=== PATIENT | male | born 1945 | race Caucasian/White ===

== ENCOUNTER 2019-09-05 12:33 | Emergency (ER) | payer OTHER ==
--- NOTE | 2019-09-05 12:47 | RAD REPORT ---
EXAM DESCRIPTION: CT - Ct Stroke Brain Wo Cont - 09/05/2019 12:41 pm CLINICAL HISTORY: left arm drift and left eye droop CVA symptomology COMPARISON: Head Brain W Cont dated 08/30/2019 TECHNIQUE: All CT scans are performed using dose optimization technique as appropriate and may inclu de automated exposure control or mA/KV adjustment according to patient size. FINDINGS: No intracranial hemorrhage, hydrocephalus or extra-axial fluid collection.Moderate general ized brain atrophy is present with moderate periventricular and deep white matter chronic microvascul ar ischemic changes.No areas of brain edema or evidence of midline shift. The paranasal sinuses and mastoids are clear. The calvarium is intact. IMPRESSION: No acute intracranial abnormality. The findings were discussed with Benny ROLAND in the ER on 09/05/2019 at 12:42 p.m. by telephone.
[2019-09-05 12:54] LABS: Basophils % 1.1 % (0-1.3); Hematocrit 36.4 % (39.6-49.0); Lymphocytes % 17.4 % (15.3-44.8); MPV 8.8 fL (7.6-11.3); RBC Red Blood Cell Count 3.91 M/uL (4.33-5.43)
[2019-09-05 13:05] LABS: Protime INR 0.97
[2019-09-05 13:09] LABS: Potassium 3.9 mmol/L (3.5-5.1)
[2019-09-05] MEDS ORDERED: ASPIRIN EC 81 MG TAB PO ONE (13:31)
--- NOTE | 2019-09-05 14:34 | RAD REPORT ---
EXAM DESCRIPTION: MRI - Brain Wo Cont - 09/05/2019 2:26 pm CLINICAL HISTORY: TIA CVA symptomology COMPARISON: Ct Stroke Brain Wo Cont dated 09/05/2019 TECHNIQUE: Multi-sequence, multiplanar MR imaging of the brain was performed without contrast. FINDINGS: No intracranial hemorrhage, hydrocephalus or extra-axial fluid collections.Moderate genera lized brain atrophy. Mild periventricular and deep white matter chronic microvascular ischemic change s. No edema or shift of midline structures. No findings to suspect brain mass. DWI is negative for ac [place] CVA. Midline structures are normally formed. Mastoid air cells and paranasal sinuses are clear. IMPRESSION: Negative for acute CVA or other acute intracranial finding.
--- NOTE | 2019-09-05 15:09 | RAD REPORT ---
EXAM DESCRIPTION: RAD - Chest Single View - 09/05/2019 12:59 pm CLINICAL HISTORY: discretion Chest pain. COMPARISON: No comparisons FINDINGS: Portable technique limits examination quality. The lungs are grossly clear. The heart is normal in size. No displaced fractures. IMPRESSION: No acute intrathoracic process suspected.
--- NOTE | 2019-09-05 15:23 | ER ---
Nurse's Notes [facility] Name: Yang Myrick Age: 73 yrs Sex: Male : 1945 Arrival Date: 09/05/2019 Time: 12:32 Bed 26 Private MD: Diagnosis: Weakness;Transient cerebral ischemic attack, unspecified Presentation: 09/05 12:32 Presenting complaint: EMS states: left arm drift and weakness that was noticed by [facility] care home staff today. Left eye droop noted and left arm drift noted. EMS reports last known normal was 09/04/19 "at breakfast time as reported by care home staff". 12:32 Onset of symptoms was August 2019. Care prior to arrival: IV initiated. 20 GA, in the aa5 left antecubital area, Glucose check: 270. 12:32 Acuity: YOANA 2 aa 12:32 Method Of Arrival: EMS: [facility] 14:21 Transition of care: patient was received from another setting of care ([facility] care [facility]. The patients blood glucose was checked prior to arriving to the hospital and was found to be hyperglycemic. Risk Assessment: Do you want to hurt yourself or someone else? Patient reports no desire to harm self or others. Initial Sepsis Screen: Does the patient meet any 2 criteria? No. Patient's initial sepsis screen is negative. Does the patient have a suspected source of infection? No. Patient's initial sepsis screen is negative. Triage Assessment: 14:21 The onset of the patients symptoms was more than six hours ago. General: Appears in no mg2 apparent distress. comfortable, Behavior is crying. 16:11 Neuro: Reports weakness. mg2 Stroke Activation: Symptom onset > 6 hours Physician: Stroke Attending; Name: ; Notified At: ; Arrived At: Physician: Chief Stroke Resident; Name: ; Notified At: ; Arrived At: Physician: Stroke Resident; Name: ; Notified At: ; Arrived At: Physician: ED Attending; Name: ; Notified At: ; Arrived At: Physician: ED Resident; Name: ; Notified At: ; Arrived At: Historical: - Allergies: 12:57 No Known Allergies; mg2 - PMHx: 12:57 BPH; Dementia; DLP; HTN; cognitive communication deficit; dysphagia; anxiety; muscle mg2 weakness generalized; - Immunization history:: Flu vaccine status is unknown. - Ebola Screening: : No symptoms or risks identified at this time. - Social history:: Smoking status: unknown. Screenin:47 Abuse screen: Denies threats or abuse. Denies injuries from another. Nutritional mg2 screening: No deficits noted. Tuberculosis screening: No symptoms or risk factors identified. Fall Risk IV access (20 points). Ambulatory Aid- None/Bed Rest/Nurse Assist (0 pts). Gait- Weak (10 pts.). Assessment: 12:32 Reassessment: Pt to CT via stretcher accompanied by ALOK Lo. aa5 12:40 VAN Scoring: Arm Drift: Minor drift Visual Disturbance: No visual disturbance noted. mg2 Aphasia: No aphasia noted. Neglect: No neglect noted. Pain: Denies pain. Neuro: Level of Consciousness is awake, alert, obeys commands, Oriented to person, time, Spare Fixer are weak on left Speech is normal, Facial droop on left. 12:48 Cardiovascular: Capillary refill < 3 seconds Patient's skin is warm and dry. mg2 Respiratory: Airway is patent Respiratory effort is even, unlabored, Respiratory pattern is regular, symmetrical. GI: No signs and/or symptoms were reported involving the gastrointestinal system. : No signs and/or symptoms were reported regarding the genitourinary system. EENT: No signs and/or symptoms were reported regarding the EENT system. Derm: Skin is intact, is healthy with good turgor, Skin is pink, warm \\T\\ dry. normal. Musculoskeletal: Circulation, motion, and sensation intact. Capillary refill < 3 seconds. 14:18 Patient has been NPO before screening. The patient is alert, and able to follow mg2 commands. The patient does not exhibit slurred or garbled speech. The patient is not exhibiting difficulty speaking. The patient does not exhibit difficulty understanding words. The patient is able to swallow own secretions with no drooling or need for suction. Patient tolerated one teaspoon of water. No drooling, immediate coughing, gurgling, or clearing of the throat was noted. The patient tolerated 90mL of water. No drooling, immediate coughing, gurgling, or clearing of the throat was noted. The patient passed the bedside swallow screening. Oral medications may be given as ordered. Contact Physician for further diet orders. Provider notified of bedside swallow screening results: Diallo ROLAND. T-PA (Activase) Screening: Contraindications: Patient reports onset of signs and symptoms of stroke greater than 6 hours ago:. 14:22 Reassessment: Patient appears in no apparent distress at this time. patient sent to MRI.mg2 15:52 Reassessment: spoke to ALOK Quiroz from [facility] and said transportation mg2 is on its way. informed. Vital Signs: 12:44 BP 160 / 95; Pulse 79; Resp 18; Temp 98.6; Pulse Ox 100% on R/A; mg2 NIH Stroke Scale Scores: 15:05 NIHSS Score: 2 jr8 ED Course: 12:32 Patient arrived in ED. mg2 12:36 Jaydon Egan MD is Attending Physician. kdr 12:40 Triage completed. aa5 12:43 CT Stroke Brain w/o Contrast In Process Unspecified. EDMS 12:44 Wally Gandhi RN is Primary Nurse. mg2 12:47 Arm band placed on. mg2 12:48 Patient has correct armband on for positive identification. corn grower on. Pulse mg2 ox on. NIBP on. Door closed. Warm blanket given. 12:48 No provider procedures requiring assistance completed. Maintain EMS IV. Dressing mg2 intact. Good blood return noted. Site clean \\T\\ dry. Gauge \\T\\ site: 20 \\T\\ LAC. 12:49 [facility] Reeder [facility] jr8 12:53 EKG done, by pharmacy laboratory technician. reviewed by Diallo ROLAND. at1 13:08 Stroke CXR 1 View In Process Unspecified. EDMS 14:20 MRI - Brain Wo Cont In Process Unspecified. EDMS 16:10 IV discontinued, intact, bleeding controlled, No redness/swelling at site. Pressure mg2 dressing applied. Administered Medications: 13:32 Drug: Aspirin 81 mg Route: PO; mg2 14:23 Follow up: Response: No adverse reaction mg2 Point of Care Testing: Blood Glucose: 12:44 Blood Glucose: 178 mg/dL; mg2 Ranges: Outcome: 15:21 Discharge ordered by . jr8 16:11 Discharged to care home. Report called to ALOK Pressley mg2 16:11 Condition: stable 16:11 Discharge instructions given to family, care home, Instructed on discharge instructions, follow up and referral plans. medication usage, Demonstrated understanding of instructions, follow-up care, medications, Prescriptions given X 1. 16:12 Patient left the ED. mg2 NIH Stroke Scale - NIH Stroke Score Date: 09/05/2019 Time: 15:05 Total Score = 2 1a. Level of Consciousness (LOC) - 0(Alert) 1b. Level of Consciousness (LOC) (Year \\T\\ Age) - 1(One) 1c. LOC Commands (Open \\T\\ Closes Eyes/Lawn Mower Operator) - 0(Both) 2. Best Gaze (Lateral Gaze Paresis) - 0(Normal) 3. Visual Field Loss - 0(No visual loss) 4. Facial Palsy - 0(Normal) 5a. Left Arm: Motor (10-second hold) - 0(No drift) 5b. Right Arm: Motor (10-second hold) - 0(No drift) 6a. Left Leg: Motor (5-second hold - always test supine) - 0(No drift) 6b. Right Leg: Motor (5-second hold - always test supine) - 0(No drift) 7. Limb Ataxia (finger/nose \\T\\ heel/merino - test with eyes open) - 0(Absent) 8. Sensory Loss (pinprick arms/legs/face) - 0(Normal) 9. Best Language: Aphasia (description/naming/reading) - 0(No aphasia) 10. Dysarthria (speech clarity - read or repeat words) - 1(Mild to Moderate) 11. Extinction and Inattention (visual/tactile/auditory/spatial/personal) - 0(No abnormality) Initials: jr8 Signatures: Dispatcher [employer] EDMS Jaydon Egan MD MD [facility] Mecca Sherwood, RN RN aa5 iDallo Reeder PA PA jr8 Sharon Jansen, gas meter checker EKG Tat1 Wally Gandhi RN RN mg2
--- NOTE | 2019-09-05 15:24 | EDPHYS ---
Physician Documentation [facility] Name: Yang Myrick Age: 73 yrs Sex: Male : 1945 Arrival Date: 09/05/2019 Time: 12:32 Bed 26 Private MD: ED Physician Jaydon Egan HPI: 09/05 15:05 This 73 yrs old Male presents to ER via EMS with complaints of S/S of jr8 Possible Stroke. 15:05 The patient's problem is reported as weakness, in the left upper extremity. Onset: The jr8 symptoms/episode began/occurred acutely, at an unknown time. Duration: The episode is continuous. Context: the episode(s) was witnessed, by the [facility] staff, symptoms became apparent at lunch time today, occurred at a penitentiary or assisted living facility. The symptoms are alleviated by nothing. The symptoms are aggravated by nothing. Associated signs and symptoms: The patient has no apparent associated signs or symptoms. Severity of symptoms: At their worst the symptoms were mild in the emergency department the symptoms have resolved. Patient's baseline: Neuro: alert but confused, orientated to person, Motor: general weakness. Wheel chair and bed bound, Ambulation: unable to walk, is bedridden, uses wheelchair, Speech: slow, slurred, history of dysphagia . It is unknown whether or not the patient has had similar symptoms in the past. The patient has not recently seen a physician. [facility] staff reported to EMS that patients last known normal was yesterday around breakfast time. Stated that today started to noticed left sided weakness. Baseline history of dementia with cognitive and motor deficits. Patient currently alert to person and place. Historical: - Allergies: 12:57 No Known Allergies; mg2 - PMHx: 12:57 BPH; Dementia; DLP; HTN; cognitive communication deficit; dysphagia; anxiety; muscle mg2 weakness generalized; - Immunization history:: Flu vaccine status is unknown. - Ebola Screening: : No symptoms or risks identified at this time. - Social history:: Smoking status: unknown. ROS: 15:05 Eyes: Negative for injury, pain, redness, and discharge, ENT: Negative for injury, jr8 pain, and discharge, Neck: Negative for injury, pain, and swelling, Cardiovascular: Negative for chest pain, palpitations, and edema, Respiratory: Negative for shortness of breath, cough, wheezing, and pleuritic chest pain, Abdomen/GI: Negative for abdominal pain, nausea, vomiting, diarrhea, and constipation, Back: Negative for injury and pain, MS/Extremity: Negative for injury and deformity, Skin: Negative for injury, rash, and discoloration. 15:05 Neuro: Positive for weakness. Exam: 15:05 Radiologist reports: negative jr8 15:05 Eyes: Pupils equal round and reactive to light, extra-ocular motions intact. Lids and lashes normal. Conjunctiva and sclera are non-icteric and not injected. Cornea within normal limits. Periorbital areas with no swelling, redness, or edema. ENT: Nares patent. No nasal discharge, no septal abnormalities noted. Tympanic membranes are normal and external auditory canals are clear. Oropharynx with no redness, swelling, or masses, exudates, or evidence of obstruction, uvula midline. Mucous membranes moist. Neck: Trachea midline, no thyromegaly or masses palpated, and no cervical lymphadenopathy. Supple, full range of motion without nuchal rigidity, or vertebral point tenderness. No Meningismus. Cardiovascular: Regular rate and rhythm with a normal S1 and S2. No gallops, murmurs, or rubs. Normal PMI, no JVD. No pulse deficits. Respiratory: Lungs have equal breath sounds bilaterally, clear to auscultation and percussion. No rales, rhonchi or wheezes noted. No increased work of breathing, no retractions or nasal flaring. Abdomen/GI: Soft, non-tender, with normal bowel sounds. No distension or tympany. No guarding or rebound. No evidence of tenderness throughout. Back: No spinal tenderness. No costovertebral tenderness. Full range of motion. Skin: Warm, dry with normal turgor. Normal color with no rashes, no lesions, and no evidence of cellulitis. MS/ Extremity: Pulses equal, no cyanosis. Neurovascular intact. Full, normal range of motion. 15:05 Neuro: Orientation: to person, place, Mentation: able to follow commands, slow to respond, Memory: immediate memory is intact, remote memory is impaired, recent memory is impaired, Cranial nerves: CN I not tested, CN II- XII are normal as tested, extraocular movements are intact, Facial palsy and sensory deficits are absent. Speech is dysarthric, slowed, Tongue strength is normal, Cerebellar function: normal finger to nose testing, Motor: moves all fours, strength is 4/5 in the right hand, left hand, right foot, left foot, right arm, left arm, right leg and left leg, Sensation: no obvious gross deficits, Gait: not tested. seizure activity, is not displayed by the patient, Abnormal movements: there are no abnormal movements. Vital Signs: 12:44 BP 160 / 95; Pulse 79; Resp 18; Temp 98.6; Pulse Ox 100% on R/A; mg2 13:30 BP 140 / 78; Pulse 80; Resp 18; Pulse Ox 100% on R/A; mg2 14:30 BP 150 / 78; Pulse 81; Resp 18; Pulse Ox 100% on R/A; mg2 15:30 BP 142 / 78; Pulse 82; Resp 18; Temp 98; Pulse Ox 100% on R/A; mg2 NIH Stroke Scale Scores: 15:05 NIHSS Score: 2 mg2 15:05 NIHSS Score: 2 [facility] MDM: 12:49 Patient medically screened. [facility] 15:05 Data reviewed: vital signs, nurses notes, lab test result(s), EKG, radiologic studies, [facility] CT scan, MRI, plain films. Data interpreted: Pulse oximetry: on room air is 100 %. Interpretation: normal. Counseling: I had a detailed discussion with the patient and/or guardian regarding: the historical points, exam findings, and any diagnostic results supporting the discharge/admit diagnosis, lab results, radiology results, the need for outpatient follow up, a family practitioner, a neurologist, to return to the emergency department if symptoms worsen or persist or if there are any questions or concerns that arise at home. ED course: No acute lab abnormalities. No acute CT or MRI findings to suggest stroke. Will have patient f/u outpatient aranda . 09/05 12:35 Order name: Basic Metabolic Panel; Complete Time: 13:20 09/05 12:35 Order name: CBC with Diff; Complete Time: 13:20 09/05 12:35 Order name: Protime (+inr); Complete Time: 13:20 09/05 12:35 Order name: Ptt, Activated; Complete Time: 13:20 09/05 12:35 Order name: CT Stroke Brain w/o Contrast; Complete Time: 13:01 09/05 12:57 Order name: Glucose, Ancillary Testing; Complete Time: 13:01 EDPA 09/05 12:35 Order name: Stroke CXR 1 View [facility] 09/05 12:35 Order name: EKG; Complete Time: 12:37 aa5 09/05 12:35 Order name: Accucheck; Complete Time: 12:49 aa5 09/05 12:35 Order name: Cardiac monitoring; Complete Time: 12:49 aa5 09/05 12:35 Order name: EKG - Nurse/Tech; Complete Time: 12:49 aa5 09/05 13:21 Order name: MRI - Brain Wo Cont; Complete Time: 14:59 jr8 09/05 14:42 Order name: Social Service Consult EDPA 09/05 12:35 Order name: IV Saline Lock; Complete Time: 12:49 aa5 09/05 12:35 Order name: Labs collected and sent; Complete Time: 12:50 aa5 09/05 12:35 Order name: NPO; Complete Time: 12:50 aa5 09/05 12:35 Order name: O2 Per Protocol; Complete Time: 12:50 aa5 09/05 12:35 Order name: O2 Sat Monitoring; Complete Time: 12:50 aa5 09/05 12:35 Order name: Stroke Swallow Screen; Complete Time: 13:16 aa5 Administered Medications: 13:32 Drug: Aspirin 81 mg Route: PO; mg2 14:23 Follow up: Response: No adverse reaction mg2 Point of Care Testing: Blood Glucose: 12:44 Blood Glucose: 178 mg/dL; mg2 Ranges: Critical Glucose Levels:Adult <50 mg/dl or >400 mg/dl <40 mg/dl or >180 mg/dl Disposition: 09/06 07:30 Co-signature as Attending Physician, Jayodn Egan MD I agree with the assessment and kdr plan of care. Disposition: 09/05/19 15:21 Discharged to Home. Impression: Weakness, Transient cerebral ischemic attack, unspecified. - Condition is Stable. - Discharge Instructions: Stroke Prevention, Transient Ischemic Attack. - Medication Reconciliation Form, Thank You Letter, Antibiotic Education, Prescription Opioid Use form. - Follow up: Private Physician; When: 2 - 3 days; Reason: Recheck today's complaints, Continuance of care, Re-evaluation by your physician. - Problem is new. - Symptoms are unchanged. - Notes: Please start 81 mg Daily aspirin NIH Stroke Scale - NIH Stroke Score Date: 09/05/2019 Time: 15:05 Total Score = 2 1a. Level of Consciousness (LOC) - 0(Alert) 1b. Level of Consciousness (LOC) (Year \T\ Age) - 1(One) 1c. LOC Commands (Open \T\ Closes Eyes/Utility Tech) - 0(Both) 2. Best Gaze (Lateral Gaze Paresis) - 0(Normal) 3. Visual Field Loss - 0(No visual loss) 4. Facial Palsy - 0(Normal) 5a. Left Arm: Motor (10-second hold) - 0(No drift) 5b. Right Arm: Motor (10-second hold) - 0(No drift) 6a. Left Leg: Motor (5-second hold - always test supine) - 0(No drift) 6b. Right Leg: Motor (5-second hold - always test supine) - 0(No drift) 7. Limb Ataxia (finger/nose \T\ heel/merino - test with eyes open) - 0(Absent) 8. Sensory Loss (pinprick arms/legs/face) - 0(Normal) 9. Best Language: Aphasia (description/naming/reading) - 0(No aphasia) 10. Dysarthria (speech clarity - read or repeat words) - 1(Mild to Moderate) 11. Extinction and Inattention (visual/tactile/auditory/spatial/personal) - 0(No abnormality) Initials: mg2 NIH Stroke Scale - NIH Stroke Score Date: 09/05/2019 Time: 15:05 Total Score = 2 1a. Level of Consciousness (LOC) - 0(Alert) 1b. Level of Consciousness (LOC) (Year \T\ Age) - 1(One) 1c. LOC Commands (Open \T\ Closes Eyes/Utility Tech) - 0(Both) 2. Best Gaze (Lateral Gaze Paresis) - 0(Normal) 3. Visual Field Loss - 0(No visual loss) 4. Facial Palsy - 0(Normal) 5a. Left Arm: Motor (10-second hold) - 0(No drift) 5b. Right Arm: Motor (10-second hold) - 0(No drift) 6a. Left Leg: Motor (5-second hold - always test supine) - 0(No drift) 6b. Right Leg: Motor (5-second hold - always test supine) - 0(No drift) 7. Limb Ataxia (finger/nose \T\ heel/merino - test with eyes open) - 0(Absent) 8. Sensory Loss (pinprick arms/legs/face) - 0(Normal) 9. Best Language: Aphasia (description/naming/reading) - 0(No aphasia) 10. Dysarthria (speech clarity - read or repeat words) - 1(Mild to Moderate) 11. Extinction and Inattention (visual/tactile/auditory/spatial/personal) - 0(No abnormality) Initials: 8 Signatures: Dispatcher [employer] EDMS Jaydon Egan MD MD kdr Mecca Sherwood RN RN aa5 Diallo Reeder PA PA jr8 Wally Gandhi RN RN mg2 Corrections: (The following items were deleted from the chart) 09/05 16:12 15:21 09/05/2019 15:21 Discharged to Home. Impression: Weakness; Transient mg2 cerebral ischemic attack, unspecified. Condition is Stable. Forms are Medication Reconciliation Form, Thank You Letter, Antibiotic Education, Prescription Opioid Use. Follow up: Private Physician; When: 2 - 3 days; Reason: Recheck today's complaints, Continuance of care, Re-evaluation by your physician. Problem is new. Symptoms are unchanged. jr8
--- NOTE | 2019-09-05 17:22 | EKG ---
Test Date: 2019-09-05 Test Time: 12:47:48 Kinesiotherapist: MITALI MEASUREMENT RESULTS: Intervals: Rate: 78 CA: 172 QRSD: 86 QT: 382 QTc: 435 [place]: P: 66 CA: 172 QRS: 33 T: 46 INTERPRETIVE STATEMENTS: Normal sinus rhythm Cannot rule out Inferior infarct, age undetermined Abnormal ECG No previous ECG available for comparison Electronically Signed On 09-05-19 17:21:33 CYTOGENETIC TECHNICIAN by Freddy Vivas
== END 2019-09-05 16:12 | disposition home or self-care (01) ==
LOC: ER 12:33
DX: G45.9 Transient cerebral ischemic attack, unspecified (principal)
CPT/HCPCS: 36415; 70450; 70551; 71045; 80048; 82947; 85025; 85610; 85730; 93005; 99284